=== PATIENT | female | born 1975 | race Hispanic/Latino ===

== ENCOUNTER 2021-02-07 10:26 | Inpatient (IN) | payer MEDICAID, SELFPAY ==
--- NOTE | ~2021-02-07 | XR_ITS ---
EXAMINATION: XR chest 2V DATE: 02/07/2021 12:36 INDICATION: Kidney failure TECHNIQUE: AP and lateral views of the chest are obtained. COMPARISON: None available FINDINGS: There is mild diffuse interstitial pattern. A large bore right internal jugular dialysis ca theter ends with its tip in the proximal right atrium. There are small pleural effusions. No pneumoth orax is identified. The cardiomediastinal silhouette is normal. The visualized bones and soft tissues are unremarkable. IMPRESSION: 1. Mild diffuse interstitial pattern, likely pulmonary edema. Reviewed, dictated and finalized at location A.
[2021-02-07 10:36] VITALS: BP 136/68; PULSE 74; RESP 18; TEMP 37; O2SAT 99
[2021-02-07 11:16] VITALS: BP 141/74; PULSE 75; RESP 19; O2SAT 100
--- NOTE | 2021-02-07 11:42 | ECG_ITS ---
Measurements Intervals [place] Rate: 77 P: 52 WI: 160 QRS: 48 QRSD: 76 T: 78 QT: 389 QTc: 442 Interpretive Statements SINUS RHYTHM CANNOT RULE OUT SEPTAL INFARCT, AGE INDETERMINATE BORDERLINE ST-T WAVE ABNORMALITY- HIGH LATERAL LEADS BASELINE WANDER- I, II, III, AVF ABNORMAL ECG Electronically Signed On 02-07-2021 12:42:32 CDT by Domingo De La Garza D.O.
--- NOTE | 2021-02-07 11:55 | ED.GENADULT ---
HPI - General Adult General Chief complaint: Unspecified Stated complaint: needs urgent dialysis Time Seen by Provider: 02/07/21 11:10 Source: patient and RN notes reviewed Mode of arrival: ambulatory Limitations: language barrier (used video housekeeping aid) History of Present Illness HPI narrative: This is a 45 year old female with history of hypertension, DM, ESRD on dialysis who presents for evaluation of urgent dialysis. She states she been receiving dialysis since October 2020 when she lived in [place]. She reports she moved to the area 1 week ago with her daughter. She received dialysis on Friday at [facility]. She states [facility] was unable to get her set up for dialysis as outpatient because she didn't have papers so she could not get medicaid in [place]. She states she is living in a trailer somewhere in [place] now so she came to ER. She is originally from [place]. She denies chest pain, shortness of breath . edema, nausea, vomiting or weakness. Related Data Allergies Allergy/AdvReac Type Severity Reaction Status Date / Time No Known Allergies Allergy Verified 02/07/21 14:15 Review of Systems Review of Systems: CONSTITUTIONAL: Denies fever, chills, or sweats. EYES: Denies visual changes, redness, or discharge. ENT: Denies rhinorrhea, congestion, sore throat, or otalgia. CARDIOVASCULAR: Denies chest pain, palpitations, or edema. RESPIRATORY: Denies cough or dyspnea. GASTROINTESTINAL: Denies abdominal pain, nausea, vomiting, or diarrhea. GENITOURINARY: Denies dysuria or hematuria. SKIN: Denies rash or itching. MUSCULOSKELETAL: Denies back pain, joint pain, or myalgia. NEUROLOGIC: Denies headache, numbness, or weakness. PSYCHIATRIC: Denies anxiety or depression. All systems reviewed & are unremarkable except as noted in HPI and below PMFSH Past Medical History Medical History (Updated 02/07/21 @ 14:33 by Olivia Anne MD) Arteriovenous fistula for hemodialysis in place, primary Diabetes mellitus ESRD on dialysis Hypertension Hypothyroid Surgical History Surgical History (Updated 02/07/21 @ 12:45 by Olivia Anne MD) H/O section Social History Social History (Updated 02/07/21 @ 12:45 by Olivia Anne MD) Smoking status: Never smoker Exam Narrative: GENERAL: Well-appearing, well-nourished, and in no acute distress. HEAD: Normocephalic, atraumatic EYES: PERRLA and EOMI, conjunctiva clear without discharge THROAT:Mucous membranes moist, Oropharynx normal without erythema, exudate, peritonsillar swelling or fluctuance NECK: Supple, without lymphadenopathy or mass RESPIRATORY: No respiratory distress, Airway patent, Respirations non-labored, Clear to auscultation without rales, rhonchi or wheeze HEART: Regular rate and rhythm. No murmur heard. Normal peripheral pulses. ABDOMEN: Soft, nontender, nondistended, normal active bowel sounds. No masses. No rebound or guarding, No organomegaly. EXTREMITIES: No edema, normal strength with full range of motion. SKIN: Warm, dry, normal color without rash NEURO: Alert and oriented x3. CN 2-12 grossly intact. No focal deficits. PSYCH: Normal mood and affect. Course Consultations Consultation #1: I discussed case with DR. Martínez. He recommends giving patient [address] on oxygen if needed. Patient will likely get dialysis tomorrow. Date: 02/07/21 Time: 14:05 Consultation #2: I discussed case with DR. cruz. She accepts patient to the medical floor. No telemetry needed at this time. Date: 02/07/21 Time: 14:47 Vital Signs Vital signs: Vital Signs Temperature 98.6 F 02/07/21 10:36 Pulse Rate 74 02/07/21 10:36 Respiratory Rate 18 02/07/21 10:36 Blood Pressure 136/68 02/07/21 10:36 Pulse Oximetry 99 02/07/21 10:36 Temperature 98.6 F 02/07/21 10:36 Pulse Rate 82 02/07/21 15:18 Respiratory Rate 19 02/07/21 15:18 Blood Pressure 153/81 H 02/07/21 15:18 Pulse
--- NOTE | 2021-02-07 12:35 | PCCCNOTE ---
Spoke with patient via interpretation video line. Pt states that she used to live in [facility] and recently moved to [place] where she lives with her daughter. Before moving to [place] she spent time with her sister in [place]. Normally she has dialysis on Fri, and Fri but, because she has not established primary care or renal care since her move, she went to [facility] and was hospitalized for dialysis February 01 - Feb 04. [facility] provided a list of hospitals in [place] because, as she is Undocumented, she does not qualify for Medicaid in [place]. She choose [facility] randomly from the list provided so that she could receive dialysis today. She had surgery on her right eye on January 15, 2021 in [place] and would like to have her eyes examined today as well. Explained Emergency Rooms were designated for care in an emergent situation and offered to provide a list of providers with who she could establish care. Spoke with [facility] administrative specialist and will fax over the patient's clinicals today so that the patient can establish herself at a dialysis center closer to where she lives
[2021-02-07 12:40] LABS: Basophils Absolute Auto 0.1 K/mm3 (0.0-0.1); Basophils Percent Auto 1.4 % (0.2-1.2); Immature Granulocyte Absolute 0.02 K/mm3 (0.00-0.031); Immature Granulocyte Percent A 0.2 % (0-0.5); Immature Platelet Fraction Pct 16.3 % (0.9-11.2); Lymphocytes Absolute Auto 2.32 K/mm3 (0.9-3.2); Lymphocytes Percent Auto 28.5 % (18.3-44.2); Mean Corpuscular HGB Conc 32.1 g/dl (32-36); Mean Corpuscular Hemoglobin 28.7 pg (26-34); Mean Corpuscular Volume 89.2 fl (80-100); Mean Platelet Volume 14.1 fl (7.4-10.4); Monocytes Absolute Auto 0.4 K/mm3 (0.1-0.6); Monocytes Percent Auto 5.2 % (2.6-8.5); Neutrophils Absolute Auto 5.3 K/mm3 (1.3-6.7); Neutrophils Percent Auto 64.7 % (45.5-73.1); Platelet Count Result 153 k/mm3 (150-375); Red Blood Count 3.14 M/mm3 (4.2-5.4); Red Cell Distribution Width 14.5 % (11.5-14.5); White Blood Count 8.1 K/mm3 (4.5-10.0)
[2021-02-07 12:49] LABS: INR 0.9; Prothrombin Time 12.2 Seconds (11.1-14.7)
[2021-02-07 12:53] LABS: Alanine Aminotransferase 16 U/L (4-35); Albumin Level 3.8 g/dL (3.5-5.1); Alkaline Phosphatase 136 U/L (38-126); Anion Gap 11 mmol/L (8-16); Aspartate Amino Transferase 31 U/L (14-36); Bilirubin,Total 0.5 mg/dL (0.2-1.3); Blood Urea Nitrogen 62 mg/dL (7-17); Calcium 8.5 mg/dL (8.4-10.2); Carbon Dioxide 21 mmol/L (22-30); Chloride 102 mmol/L (98-107); Estimated CRCL calculation 9 ml/min; Estimated Glomerular Filt Rate 8; Glucose 201 mg/dL (65-110); Magnesium 2.1 mg/dL (1.6-2.3); Phosphorus 3.7 mg/dL (2.5-4.5); Potassium 5.1 mmol/L (3.4-5.0); Sodium 134 mmol/L (137-145)
--- NOTE | 2021-02-07 13:28 | PCCCNOTE ---
Clinicals faxed to [facility]
--- NOTE | 2021-02-07 13:42 | PCCCNOTE ---
Clinicals faxed to [facility]
[2021-02-07] MEDS: SODIUM POLYSTYRENE SULFONONATE 15 GM/60 ML BTL 30 GM PO (14:16)
--- NOTE | 2021-02-07 14:53 | PCCCNOTE ---
Tentatively set dialysis at [facility] in [facility] for , , Fri, Second slot (approximate start time 0 0)
[2021-02-07 15:18] VITALS: BP 153/81; PULSE 82; RESP 19; O2SAT 100
--- NOTE | 2021-02-07 15:41 | PCCCNOTE ---
Spoke with [facility] - pt qualifies, at least temporarily, for Emergency Assistance. Completed IQ form with patient and faxed IQ form to [facility]. Patient had minimal information. Patient does not work and lives with daughter (who works at [employer]) and 16 yr old son.
--- NOTE | 2021-02-07 16:33 | PCCCNOTE ---
Clinicals sent to [facility]
--- NOTE | 2021-02-07 16:54 | PM.CNNEP ---
Assessment and Plan Assessment and plan (1) End-stage renal disease (ESRD): Code(s): N18.6 - End stage renal disease Status: Acute Assessment and Plan: the patient has end-stage renal disease. She has a fistula and a catheter. It does not look like the fistula is mature for use right now. The patient does not have shortness of breath. Her potassium is a little bit elevated. They gave her some Kayexalate in the emergency room. Today there are several patients plus emergencies so we may not be able to get to this dialysis today. The patient does not look uremic and she is not on oxygen and comfortable lying flat so I think it is okay to wait till tomorrow if we can't get to her today. I did talk with the dialysis nurse however in case there is a cancellation of 1 of the dialyses this afternoon. (2) Hypertension: Code(s): I10 - Essential (primary) hypertension Status: Acute Assessment and Plan: Blood pressure is a little bit on the high side. This may be related to fluid. Will see how the blood pressure is after fluid removal. (3) Hyperkalemia: Code(s): E87.5 - Hyperkalemia Status: Acute Assessment and Plan: The patient's potassium is elevated. She received Kayexalate for this. (4) Erythropoietin deficiency anemia: Code(s): D63.1 - Anemia in chronic kidney disease Status: Acute Assessment and Plan: Hemoglobin is low. We will give her Epogen. (5) Metabolic acidosis: Code(s): E87.2 - Acidosis Status: Acute Assessment and Plan: Metabolic acidosis due to under dialysis most likely. We can repeat this tomorrow and see how she does History of Present Illness Reason for Consult Consult date: 02/07/21 Chief Complaint Chief complaint: needs urgent dialysis History of Present Illness Narrative: Clarissa is a very pleasant 45-year-old lady who does not speak Kinyarwanda. I used an meeting/event planner to talk to the lady however the system crash. So some of this is from talking with her, some of this is from the chart. The patient has been on dialysis since October. She started treatments in [facility]. There they placed a catheter and also placed a fistula. The fistula looks like it was placed sometime in the last couple of months but has a very good thrill and bruit in the Cephalic vein in the upper arm. the patient used to live with her sister in [place] and then moved in with her daughter in this area. Unfortunately she did not find accommodations for dialysis before she moved. She does not have a doctor. She went to [facility] last week for dialysis. She had her last treatment on Friday. She was discharged, but I do not know the disposition. Today the patient felt short of breath so she came to the ER here at [facility]. She was evaluated in the emergency room. She is not on oxygen. Her chest x-ray does show some fluid but her lungs are clear and she is not short of breath lying flat. Her potassium is okay. Review of Systems Review of Systems: Unobtainable due to language barrier. ROS unobtainable: Yes other [facility] Past Medical History Medical History (Updated 02/07/21 @ 17:07 by Ayan Martínez MD) Arteriovenous fistula for hemodialysis in place, primary Diabetes mellitus Erythropoietin deficiency anemia ESRD on dialysis Hypertension Hypothyroid Metabolic acidosis Surgical History Surgical History H/O section Social History Social History Smoking status: Never smoker Meds Home Medications and Allergies Allergies Allergy/AdvReac Type Severity Reaction Status Date / Time No Known Allergies Allergy Verified 02/07/21 14:15 Vital Signs Vital Signs - 24 hr 02/07/21 10:36 02/07/21 11:16 02/07/21 15:18 Temperature 37.0 C Pulse Rate 74 75 82 Respiratory Rat
--- NOTE | 2021-02-07 17:50 | ADMGEN ---
This patient, Clarissa Novak, was admitted to 3 Medical Room 346-01. Patient/family oriented to hospital policies and general routines including ID bracelet, bed and alarms, visiting hours, pain management, procedures, bathroom and other care routines, personal items, smoking policy, room service/diet, and visiting hours. Information on how to activate the Rapid Response Team has been discussed. Patient/Family are encouraged to report perceived risks to care and to ask questions if they do not understand what they are told or what they should do.
[2021-02-07 20:00] VITALS: BP 155/85; PULSE 89; RESP 18; TEMP 35.8; O2SAT 100
[2021-02-07 20:44] LABS: Hepatitis B Surface Antigen Negative (Negative)
[2021-02-08] VITALS (18 sets, daily range): BP systolic 117–156; BP diastolic 74–89; PULSE 74–87; RESP 16–20; TEMP 36.1–37.2; O2SAT 99–100
--- NOTE | 2021-02-08 00:17 | PM.IMHP ---
H&P: HPI History of Present Illness Date/Time: 02/08/21 00:17 Chief Complaint: dialysis Narrative: This is a 45-year-old female with past medical history significant for diabetes, end-stage renal disease on hemodialysis patient initially got her treatment in [place] where she was staying with her sister she got a fistula in the left arm and a temporary dialysis catheter of the right subclavian fossa according to patient this was in early October 12 and respectively she has been undergoing dialysis 3 times a week but recently changed area of residence and just moved in this area and has not been able to establish care she had been recently at [facility] for this received hemodialysis and was discharged home. [place] has been [place] the last 3 years she is from [place]. patient states that she has visual loss of her left eye and minimal vision of her right eye due to diabetic retinopathy she also inquires if it is possible to get care for her diabetic retinopathy in the area. at this time she denies any nausea vomiting abdominal pain diarrhea shortness of breath cough sputum production shaking chills or rigors no edema. Preliminary workup was significant for elevated creatinine. now she has relocated to this area iis currently living with her daughter. Review of Systems Review of Systems: shortness of breath and need for dialysis Constitutional: Constitutional: Denies chills, Denies fatigue, Denies fever(s), Denies malaise and Denies weakness Eyes: Eyes: Reports loss of vision ( left eye blindness right eye diminished vision acuity) ENT: Denies dysphagia, Denies nasal congestion, Denies nasal discharge, Denies nasal obstruction and Denies odynophagia Cardiovascular: Cardiovascular: Denies chest pain, Denies leg edema, Denies radiating jaw, neck or arm pain, Denies palpitations and Reports dyspnea Respiratory: Respiratory: Denies cough Gastrointestinal: Gastrointestinal: Denies diarrhea, Denies nausea and Denies vomiting Genitourinary: Genitourinary: Reports no additional female genitourinary complaints Musculoskeletal: Musculoskeletal: Reports no additional musculoskeletal complaints Integumentary/Breasts: Skin/Breast: Reports system reviewed and no additional complaints, except as docu Neurologic: Reports system reviewed and no additional complaints, except as documented Psychiatric: Psychiatric: Reports no additional psychiatric complaints Endocrine: Endocrine: Reports no additional endocrine complaints Hematologic/Lymphatic: Hematologic/Lymphatic: Reports no additional hematologic/lymphatic complaints Allergic/Immunologic: Allergic/Immunologic: Reports no additional allergic/immunologic complaints [facility] Past Medical History Medical History (Updated 02/08/21 @ 00:46 by Shane Cardona MD) Arteriovenous fistula for hemodialysis in place, primary Diabetes mellitus Erythropoietin deficiency anemia ESRD on dialysis Hypertension Hypothyroid Metabolic acidosis Surgical History Surgical History H/O section Family History Family History (Updated 02/07/21 @ 18:32 by Amanda Greene RN) Mother Diabetes mellitus Father Emphysema lung Smoker Social History Social History Smoking status: Never smoker Alcohol intake: never Substance use: never Substance use type: does not use Spiritual care concerns: No Meds Home Medications and Allergies Home Medications Medication Instructions Recorded Confirmed Type Vitamin D3 400 units PO DAILY 02/07/21 02/07/21 History amlodipine 10 mg PO DAILY 02/07/21 02/07/21 History aspirin 81 mg PO DAILY 02/07/21 02/07/21 History atorvastatin 40 mg PO HS 02/07/21 02/07/21 History atropine 1 drp RIGHT EYE DAILY 02/07/21 02/07/21 History brimonidine-timolol [Combigan] 1 drp RIGHT EYE DAILY 02/07/21 02/07/21 History carvedilol 12.5 mg PO D
[2021-02-08] MEDS: LEVOTHYROXINE SODIUM 88 MCG TABLET PO (05:32)
[2021-02-08 06:10] LABS: Basophils Absolute Auto 0.1 K/mm3 (0.0-0.1); Basophils Percent Auto 1.3 % (0.2-1.2); Eosinophils Absolute Auto 0.5 K/mm3 (0-0.3); Eosinophils Percent Auto 5.4 % (0-4.4); Hematocrit 30.1 % (37.0-47.0); Hemoglobin 9.7 g/dL (12.0-15.0); Immature Granulocyte Absolute 0.02 K/mm3 (0.00-0.031); Immature Granulocyte Percent A 0.2 % (0-0.5); Immature Platelet Fraction Pct 14.1 % (0.9-11.2); Lymphocytes Absolute Auto 2.61 K/mm3 (0.9-3.2); Lymphocytes Percent Auto 31.5 % (18.3-44.2); Mean Corpuscular HGB Conc 32.2 g/dl (32-36); Mean Corpuscular Volume 89.9 fl (80-100); Mean Platelet Volume 13.5 fl (7.4-10.4); Monocytes Absolute Auto 0.3 K/mm3 (0.1-0.6); Monocytes Percent Auto 4.1 % (2.6-8.5); Neutrophils Absolute Auto 4.8 K/mm3 (1.3-6.7); Neutrophils Percent Auto 57.5 % (45.5-73.1); Platelet Count Result 160 k/mm3 (150-375); Red Blood Count 3.35 M/mm3 (4.2-5.4); Red Cell Distribution Width 14.3 % (11.5-14.5); White Blood Count 8.3 K/mm3 (4.5-10.0)
[2021-02-08 06:28] LABS: Albumin Level 3.4 g/dL (3.5-5.1); Anion Gap 10 mmol/L (8-16); Blood Urea Nitrogen 55 mg/dL (7-17); Calcium 9.1 mg/dL (8.4-10.2); Carbon Dioxide 18 mmol/L (22-30); Chloride 110 mmol/L (98-107); Estimated CRCL calculation 8 ml/min; Estimated Glomerular Filt Rate 7; Glucose 105 mg/dL (65-110); Phosphorus 4.6 mg/dL (2.5-4.5); Potassium 4.4 mmol/L (3.4-5.0); Sodium 138 mmol/L (137-145)
[2021-02-08] MEDS: FUROSEMIDE 40 MG TABLET PO (08:37)
[2021-02-08] MEDS: CHOLECALCIFEROL 400 UNITS TABLET (VIT D) PO (08:37)
[2021-02-08] MEDS: amLODIPine BESYLATE 5 MG TABLET 10 MG PO (08:37)
[2021-02-08] MEDS: LORATADINE 10 MG TABLET PO (08:37)
[2021-02-08] MEDS: ASPIRIN 81 MG ENTERIC TABLET PO (08:37)
[2021-02-08] MEDS: carvediloL 12.5 MG TABLET PO ×2 (08:37→17:48)
[2021-02-08 08:38] LABS: Glucose Point of Care 108 mg/dl (65-105)
[2021-02-08] MEDS: FERROUS SULFATE 324 MG TABLET PO (08:38)
[2021-02-08] MEDS: BRIMONIDINE TARTRATE 0.2% OP SOLN 5 ML BTL 1 DROP RIGHT EYE (08:39)
[2021-02-08] MEDS: prednisoLONE ACETATE 1% OPHTH 5 ML 1 DROP RIGHT EYE (08:39)
[2021-02-08] MEDS: ATROPINE SULFATE 1% OPHTH SOLN 5 ML BOTTLE 1 DROP RIGHT EYE (08:39)
[2021-02-08] MEDS: TIMOLOL MALEATE 0.5% OP SOLN 5 ML BOTTLE 1 DROP RIGHT EYE (08:55)
[2021-02-08] MEDS: INSULIN ASPART (*BKC) 100 UNITS/ML SUB-Q ×3 (09:06→17:50)
--- NOTE | 2021-02-08 09:15 | PC.NURSE ---
Report called to director public service.
--- NOTE | 2021-02-08 09:21 | PC.NURSE ---
To Dialysis via bed.
[2021-02-08] MEDS: EPOETIN ALFA-EPBX 10,000 UNITS/ML VIAL 10000 UNITS IV PUSH (10:00)
[2021-02-08 12:06] LABS: Hepatitis B Core IgM Result Negative (Negative)
--- NOTE | 2021-02-08 13:00 | PC.NURSE ---
Returned from dialysis via bed.
[2021-02-08 13:09] LABS: Glucose Point of Care 137 mg/dl (65-105)
--- NOTE | 2021-02-08 14:31 | PM.PNNEP ---
Progress Note: A&P Assessment and Plan (1) End-stage renal disease (ESRD): Code(s): N18.6 - End stage renal disease Status: Acute Assessment and Plan: the patient has end-stage renal disease. She has a fistula and a catheter. It does not look like the fistula is mature for use right now. The patient had dialysis earlier today. She will need placement in an outpatient dialysis unit. (2) Hypertension: Code(s): I10 - Essential (primary) hypertension Status: Acute Assessment and Plan: Blood pressure is doing better. (3) Hyperkalemia: Code(s): E87.5 - Hyperkalemia Status: Acute Assessment and Plan: The patient's potassium is Better. (4) Erythropoietin deficiency anemia: Code(s): D63.1 - Anemia in chronic kidney disease Status: Acute Assessment and Plan: Hemoglobin is low. Getting Epogen. (5) Metabolic acidosis: Code(s): E87.2 - Acidosis Status: Acute Assessment and Plan: Metabolic acidosis due to under dialysis most likely. We can repeat this tomorrow and see how she does Subjective Date/time seen: 02/08/21 14:31 Interval history: Clarissa is feeling better today. She is smiling. Photo Booth Operator is unavailable. Daughter is at work and cannot help. The patient received dialysis today. Hemodynamically she did very well. Review of Systems Cardiovascular: Cardiovascular: Reports no additional cardiovascular complaints Respiratory: Respiratory: Reports no additional respiratory complaints Gastrointestinal: Gastrointestinal: Reports no additional gastrointestinal complaints Genitourinary: Genitourinary: Reports no additional female genitourinary complaints Exam Narrative: WDWN in NAD skin no rash head ncat lungs clear cor reg no rub abd BS+ nontender and soft ext no edema. Objective Data Vital Signs Vital Signs: Vital Signs - 24 hr 02/07/21 15:18 02/07/21 20:00 02/08/21 05:54 Temperature 35.8 C L 36.1 C L Pulse Rate 82 89 87 Respiratory Rate 19 18 18 Blood Pressure 153/81 H 155/85 H 156/76 H Pulse Oximetry 100 100 100 02/08/21 08:37 02/08/21 09:00 02/08/21 09:30 Temperature 36.7 C Pulse Rate 84 84 78 Respiratory Rate 18 20 Blood Pressure 150/85 H Pulse Oximetry 100 02/08/21 09:45 02/08/21 10:00 02/08/21 10:15 Temperature Pulse Rate 77 80 78 Respiratory Rate Blood Pressure 150/82 H 154/89 H 153/84 H Pulse Oximetry 02/08/21 11:00 02/08/21 11:30 02/08/21 12:00 Temperature Pulse Rate 78 79 80 Respiratory Rate Blood Pressure 155/81 H 141/78 H 141/83 H Pulse Oximetry 02/08/21 12:15 02/08/21 12:30 02/08/21 12:45 Temperature Pulse Rate 81 84 82 Respiratory Rate Blood Pressure 137/80 117/74 130/82 Pulse Oximetry 02/08/21 12:50 Temperature 36.8 C Pulse Rate 78 Respiratory Rate 20 Blood Pressure 147/79 H Pulse Oximetry Intake/Output Intake/Output: Intake & Output 02/05/21 02/06/21 02/07/21 02/08/21 23:59 23:59 23:59 23:59 Intake Total 240 Output Total 3000 Balance -5540 Meds/Results Medications: Active Medications Generic Name Dose Route Start Last Admin Trade Name Freq PRN Reason Stop Dose Admin Amlodipine Besylate 10 mg 02/08/21 09:00 02/08/21 08:37 Amlodipine Besylate 5 Mg Tablet PO 03/10/21 09:01 10 mg DAILY AMY Administration Aspirin 81 mg 02/08/21 09:00 02/08/21 08:37 Aspirin 81 Mg Enteric Tablet PO 81 mg QAM AMY Administration Atorvastatin Calcium 40 mg 02/08/21 21:00 Atorvastatin 40 Mg Tablet PO AMY Atropine Sulfate 1 drop 02/08/21 09:00 02/08/21 08:39 Atropine Sulfate 1% Ophth Soln 5 Ml Bottle RIGHT EYE 03/10/21 09:01 1 drop DAILY AMY Administration Brimonidine Tartrate 1 drop 02/08/21 09:00 02/08/21 08:39 Brimonidine Tartrate 0.2% Op Soln 5 Ml Btl RIGHT EYE 03/10/21 09:01 1 drop DAILY AMY Administration Carve
--- NOTE | 2021-02-08 15:49 | PM.IMPN ---
Progress Note: A&P Assessment and Plan (1) End-stage renal disease (ESRD): Code(s): N18.6 - End stage renal disease Status: Acute Assessment and Plan: patient dialyzes 3 times a week, recently moved to the area. Last Dialysis was Friday at [facility]. Dr. Martínez evaluated the patient and she had dialysis this morning Feeling well at this time. Working on getting her an outpatient dialysis chair. Continued monitoring. (2) Hyperkalemia: Code(s): E87.5 - Hyperkalemia Status: Acute Assessment and Plan: Improved after dialysis. She did receive Kayexalate the emergency room on arrival. (3) Hypertension: Code(s): I10 - Essential (primary) hypertension Status: Acute Assessment and Plan: Blood pressure this morning was slightly elevated 156/76, most likely due to fluid overload and needing dialysis. resume home meds (4) Diabetes mellitus: Code(s): E11.9 - Type 2 diabetes mellitus without complications Status: Inactive Assessment and Plan: patient is on glipizide glipizide has been held due to patient's end-stage renal disease will do insulin sliding scale as needed. glucose check a.c. HS. Hypoglycemic protocol in place. (5) Arteriovenous fistula for hemodialysis in place, primary: Code(s): Z99.2 - Dependence on renal dialysis Status: Inactive Assessment and Plan: continue to monitor immature Time Spent With Patient Time with patient: 25 - 35 minutes Subjective Date/time seen: 02/08/21 15:49 Interval history: date of service 02/08/2021: the patient reports feeling well today After having dialysis. she reports improvement of her breathing, weakness, fatigue. She denies any fevers, chills, nausea, vomiting, abdominal pain, leg swelling, calf pain, chest pain, cough or any other symptoms at this time. receiving lead was used via [employer] system Review of Systems Review of Systems: All systems reviewed & are unremarkable except as noted in HPI and below Exam Narrative: General: 45-year-old woman sitting up in bed, on her phone. Appears comfortable. In no acute distress. Skin: No jaundice or cyanosis. Good skin turgor. Neck: Full range of motion. Supple. Respiratory: Lungs are clear to auscultation bilaterally. No wheezing, rales or rhonchi. No bony chest wall tenderness. Cardiovascular: The heart has a regular rate and rhythm without murmur. Lower extremities: No lower extremity edema. Distal pulses are easily palpated. No calf tenderness to palpation. Gastrointestinal: The abdomen is soft, nontender and nondistended with active bowel sounds. Psychiatric: Lucid and oriented. Memory intact. Neurologic: No focal deficits. Speech is clear. No facial drooping. Objective Data Vital Signs Vital Signs: Vital Signs - 24 hr 02/07/21 20:00 02/08/21 05:54 02/08/21 08:37 Temperature 96.5 F L 96.9 F L Pulse Rate 89 87 84 Respiratory Rate 18 18 Blood Pressure 155/85 H 156/76 H Pulse Oximetry 100 100 02/08/21 09:00 02/08/21 09:30 02/08/21 09:45 Temperature 98.0 F Pulse Rate 84 78 77 Respiratory Rate 18 20 Blood Pressure 150/85 H 150/82 H Pulse Oximetry 100 02/08/21 10:00 02/08/21 10:15 02/08/21 11:00 Temperature Pulse Rate 80 78 78 Respiratory Rate Blood Pressure 154/89 H 153/84 H 155/81 H Pulse Oximetry 02/08/21 11:30 02/08/21 12:00 02/08/21 12:15 Temperature Pulse Rate 79 80 81 Respiratory Rate Blood Pressure 141/78 H 141/83 H 137/80 Pulse Oximetry 02/08/21 12:30 02/08/21 12:45 02/08/21 12:50 Temperature 98.2 F Pulse Rate 84 82 78 Respiratory Rate 20 Blood Pressure 117/74 130/82 147/79 H Pulse Oximetry
[2021-02-08 17:14] LABS: Glucose Point of Care 117 mg/dl (65-105)
[2021-02-08] MEDS: ATORVASTATIN 40 MG TABLET PO (20:21)
[2021-02-08 20:52] LABS: Glucose Point of Care 123 mg/dl (65-105)
[2021-02-09] MEDS: LEVOTHYROXINE SODIUM 88 MCG TABLET PO (05:48)
[2021-02-09 05:54] VITALS: BP 140/73; PULSE 77; RESP 16; TEMP 36.1; O2SAT 100
[2021-02-09 06:11] LABS: Albumin Level 3.4 g/dL (3.5-5.1); Anion Gap 9 mmol/L (8-16); Blood Urea Nitrogen 29 mg/dL (7-17); Calcium 8.8 mg/dL (8.4-10.2); Carbon Dioxide 25 mmol/L (22-30); Chloride 97 mmol/L (98-107); Estimated CRCL calculation 13 ml/min; Estimated Glomerular Filt Rate 12; Glucose 116 mg/dL (65-110); Phosphorus 4.1 mg/dL (2.5-4.5); Potassium 3.6 mmol/L (3.4-5.0); Sodium 131 mmol/L (137-145)
[2021-02-09 09:07] VITALS: PULSE 77
[2021-02-09] MEDS: carvediloL 12.5 MG TABLET PO ×2 (09:07→17:24)
[2021-02-09] MEDS: amLODIPine BESYLATE 5 MG TABLET 10 MG PO (09:07)
[2021-02-09] MEDS: LORATADINE 10 MG TABLET PO (09:07)
[2021-02-09] MEDS: ASPIRIN 81 MG ENTERIC TABLET PO (09:07)
[2021-02-09] MEDS: FUROSEMIDE 40 MG TABLET PO (09:07)
[2021-02-09] MEDS: FERROUS SULFATE 324 MG TABLET PO (09:07)
[2021-02-09] MEDS: ATROPINE SULFATE 1% OPHTH SOLN 5 ML BOTTLE 1 DROP RIGHT EYE (09:07)
[2021-02-09] MEDS: CHOLECALCIFEROL 400 UNITS TABLET (VIT D) PO (09:07)
[2021-02-09] MEDS: BRIMONIDINE TARTRATE 0.2% OP SOLN 5 ML BTL 1 DROP RIGHT EYE (09:07)
[2021-02-09] MEDS: TIMOLOL MALEATE 0.5% OP SOLN 5 ML BOTTLE 1 DROP RIGHT EYE (09:08)
[2021-02-09] MEDS: prednisoLONE ACETATE 1% OPHTH 5 ML 1 DROP RIGHT EYE (09:08)
[2021-02-09] MEDS: INSULIN ASPART (*BKC) 100 UNITS/ML SUB-Q ×3 (09:15→17:24)
[2021-02-09 09:16] LABS: Glucose Point of Care 143 mg/dl (65-105)
--- NOTE | 2021-02-09 10:12 | PM.PNNEP ---
Progress Note: A&P Assessment and Plan (1) End-stage renal disease (ESRD): Code(s): N18.6 - End stage renal disease Status: Acute Assessment and Plan: the patient has end-stage renal disease. She has a fistula and a catheter. It does not look like the fistula is mature for use right now. will do another dialysis tomorrow. house visitor trying to get her an outpatient facility. (2) Hypertension: Code(s): I10 - Essential (primary) hypertension Status: Acute Assessment and Plan: Blood pressure is doing better. (3) Hyperkalemia: Code(s): E87.5 - Hyperkalemia Status: Acute Assessment and Plan: The patient's potassium is Better. (4) Erythropoietin deficiency anemia: Code(s): D63.1 - Anemia in chronic kidney disease Status: Acute Assessment and Plan: Hemoglobin is low. Getting Epogen. (5) Metabolic acidosis: Code(s): E87.2 - Acidosis Status: Acute Assessment and Plan: resolved Subjective Date/time seen: 02/09/21 10:12 Interval history: Clarissa is feeling better today. She is smiling. Ipad mud jack operator available. Patient has no chest pain or shortness of breath. She is feeling okay. Exam Narrative: WDWN in NAD skin no rash head ncat lungs clear bilaterally cor reg no rub o gallop abd BS+ nontender and soft ext no edema. Objective Data Vital Signs Vital Signs: Vital Signs - 24 hr 02/08/21 10:15 02/08/21 11:00 02/08/21 11:30 Temperature Pulse Rate 78 78 79 Respiratory Rate Blood Pressure 153/84 H 155/81 H 141/78 H Pulse Oximetry 02/08/21 12:00 02/08/21 12:15 02/08/21 12:30 Temperature Pulse Rate 80 81 84 Respiratory Rate Blood Pressure 141/83 H 137/80 117/74 Pulse Oximetry 02/08/21 12:45 02/08/21 12:50 02/08/21 14:00 Temperature 36.8 C 37.2 C Pulse Rate 82 78 84 Respiratory Rate 20 18 Blood Pressure 130/82 147/79 H 151/74 H Pulse Oximetry 100 02/08/21 17:48 02/08/21 20:16 02/08/21 23:49 Temperature 36.2 C L Pulse Rate 84 74 Respiratory Rate 16 Blood Pressure 151/76 H Pulse Oximetry 100 99 02/09/21 05:54 02/09/21 09:07 Temperature 36.1 C L Pulse Rate 77 77 Respiratory Rate 16 Blood Pressure 140/73 Pulse Oximetry 100 Intake/Output Intake/Output: Intake & Output 02/06/21 02/07/21 02/08/21 02/09/21 23:59 23:59 23:59 23:59 Intake Total 840 560 Output Total 3000 Balance -2160 560 Meds/Results Medications: Active Medications Generic Name Dose Route Start Last Admin Trade Name Freq PRN Reason Stop Dose Admin Amlodipine Besylate 10 mg 02/08/21 09:00 02/09/21 09:07 Amlodipine Besylate 5 Mg Tablet PO 03/10/21 09:01 10 mg DAILY AMY Administration Aspirin 81 mg 02/08/21 09:00 02/09/21 09:07 Aspirin 81 Mg Enteric Tablet PO 81 mg QAM AMY Administration Atorvastatin Calcium 40 mg 02/08/21 21:00 02/08/21 20:21 Atorvastatin 40 Mg Tablet PO 40 mg HS AMY Administration Atropine Sulfate 1 drop 02/08/21 09:00 02/09/21 09:07 Atropine Sulfate 1% Ophth Soln 5 Ml Bottle RIGHT EYE 03/10/21 09:01 1 drop DAILY AMY Administration Brimonidine Tartrate 1 drop 02/08/21 09:00 02/09/21 09:07 Brimonidine Tartrate 0.2% Op Soln 5 Ml Btl RIGHT EYE 03/10/21 09:01 1 drop DAILY AMY Administration Carvedilol 12.5 mg 02/08/21 17:00 02/09/21 09:07 Carvedilol 12.5 Mg Tablet PO 12.5 mg BID AMY Administration Epoetin Luis Fernando-epbx 10,000 units 02/10/21 10:00 Epoetin Luis Fernando-Epbx 10,000 Units/Ml Vial IV PUSH TUTHSA [facility] Ferrous Sulfate 324 mg 02/08/21 08:00 02/09/21 09:07 Ferrous Sulfate 324 Mg Tablet PO 324 mg DAILY@0800 AMY Administration Furosemide 40 mg 02/08/21 09:00 02/09/21 09:07 Furosemide 40 Mg Tablet PO 40 mg DAILY AMY Administration Heparin Sodium (Porcine) 500 units 02/09/21 09:45 Heparin Sodium 1,000 Units/Ml Vial IV PUSH
--- NOTE | 2021-02-09 11:47 | PM.IMPN ---
Progress Note: A&P Assessment and Plan (1) End-stage renal disease (ESRD): Code(s): N18.6 - End stage renal disease Status: Acute Assessment and Plan: patient dialyzes 3 times a week, recently moved to the area. Last Dialysis was Friday at [facility], she received dialysis 02/08/21. Dr. Martínez evaluated the patient and working on getting her an outpatient dialysis chair. Pending Hepatitis B Core Surface Antibody before someone will accept her at outpatient dialysis. Continued monitoring. (2) Hyperkalemia: Code(s): E87.5 - Hyperkalemia Status: Acute Assessment and Plan: Improved after dialysis. She did receive Kayexalate the emergency room on arrival. (3) Hypertension: Code(s): I10 - Essential (primary) hypertension Status: Acute Assessment and Plan: Blood pressure this morning was slightly elevated 140/73. Stable. Continue home meds (4) Diabetes mellitus: Code(s): E11.9 - Type 2 diabetes mellitus without complications Status: Inactive Assessment and Plan: patient is on glipizide glipizide has been held due to patient's end-stage renal disease will do insulin sliding scale as needed. glucose check a.c. HS. Hypoglycemic protocol in place. (5) Arteriovenous fistula for hemodialysis in place, primary: Code(s): Z99.2 - Dependence on renal dialysis Status: Inactive Assessment and Plan: continue to monitor immature Time Spent With Patient Time with patient: 25 - 35 minutes Subjective Date/time seen: 02/09/21 11:47 Interval history: Date of service 02/09/2021: The patient reports feeling well today without any issues at this time. Denies any SOB, fevers, chills, nausea, vomiting, abdominal pain, leg swelling, calf pain, chest pain, cough or any other symptoms at this time. grounds restoration specialist was used via [employer] system. Review of Systems Review of Systems: All systems reviewed & are unremarkable except as noted in HPI and below Exam Narrative: General: 45-year-old woman laying flat in bed resting. Appears comfortable. In no acute distress. Skin: No jaundice or cyanosis. Good skin turgor. Neck: Full range of motion. Supple. Respiratory: Lungs are clear to auscultation bilaterally. No wheezing, rales or rhonchi. No bony chest wall tenderness. Cardiovascular: The heart has a regular rate and rhythm without murmur. Lower extremities: No lower extremity edema. Distal pulses are easily palpated. No calf tenderness to palpation. Gastrointestinal: The abdomen is soft, nontender and nondistended with active bowel sounds. Psychiatric: Lucid and oriented. Memory intact. Neurologic: No focal deficits. Speech is clear. No facial drooping. Objective Data Vital Signs Vital Signs: Vital Signs - 24 hr 02/08/21 12:00 02/08/21 12:15 02/08/21 12:30 Temperature Pulse Rate 80 81 84 Respiratory Rate Blood Pressure 141/83 H 137/80 117/74 Pulse Oximetry 02/08/21 12:45 02/08/21 12:50 02/08/21 14:00 Temperature 98.2 F 98.9 F Pulse Rate 82 78 84 Respiratory Rate 20 18 Blood Pressure 130/82 147/79 H 151/74 H Pulse Oximetry 100 02/08/21 17:48 02/08/21 20:16 02/08/21 23:49 Temperature 97.1 F L Pulse Rate 84 74 Respiratory Rate 16 Blood Pressure 151/76 H Pulse Oximetry 100 99 02/09/21 05:54 02/09/21 09:07 Temperature 96.9 F L Pulse Rate 77 77 Respiratory Rate 16 Blood Pressure 140/73 Pulse Oximetry 100 Intake/Output Intake/Output: Intake & Output 02/06/21 02/07/21 02/08/21 02/09/21 23:59 23:59 23:59 23:59 Intake Total 840 560 Output Total 3000 Balance -2160 560 Meds/Results Medications: Active Medications Generic Name
[2021-02-09 11:50] LABS: Hepatitis B Surface Anti Res Negative; Hepatitis C Virus Antibody Negative (Negative)
[2021-02-09 12:50] LABS: Glucose Point of Care 172 mg/dl (65-105)
[2021-02-09 14:11] VITALS: BP 129/73; PULSE 77; RESP 16; TEMP 36; O2SAT 100
[2021-02-09 17:18] LABS: Glucose Point of Care 127 mg/dl (65-105)
[2021-02-09 17:24] VITALS: PULSE 77
[2021-02-09] MEDS: ENOXAPARIN 30 MG/0.3 ML SYRINGE SUB-Q (17:24)
[2021-02-09] MEDS: EPOETIN ALFA-EPBX 10,000 UNITS/ML VIAL 10000 UNITS SUB-Q (18:13)
[2021-02-09] MEDS: ACETAMINOPHEN 325 MG TABLET 650 MG PO (18:13)
[2021-02-09] MEDS: ATORVASTATIN 40 MG TABLET PO (20:19)
[2021-02-09 20:35] LABS: Glucose Point of Care 143 mg/dl (65-105)
[2021-02-09 22:00] VITALS: BP 139/66; PULSE 76; RESP 21; TEMP 35.9; O2SAT 100
[2021-02-10] VITALS (12 sets, daily range): BP systolic 102–148; BP diastolic 65–81; PULSE 73–84; RESP 16–21; TEMP 36–37; O2SAT 100
[2021-02-10] MEDS: LEVOTHYROXINE SODIUM 88 MCG TABLET PO (05:35)
[2021-02-10 06:40] LABS: Albumin Level 3.2 g/dL (3.5-5.1); Anion Gap 12 mmol/L (8-16); Blood Urea Nitrogen 48 mg/dL (7-17); Calcium 8.9 mg/dL (8.4-10.2); Carbon Dioxide 22 mmol/L (22-30); Chloride 97 mmol/L (98-107); Estimated CRCL calculation 10 ml/min; Estimated Glomerular Filt Rate 8; Glucose 124 mg/dL (65-110); Phosphorus 5.1 mg/dL (2.5-4.5); Potassium 3.6 mmol/L (3.4-5.0); Sodium 131 mmol/L (137-145)
[2021-02-10] MEDS: BRIMONIDINE TARTRATE 0.2% OP SOLN 5 ML BTL 1 DROP RIGHT EYE (08:34)
[2021-02-10] MEDS: ENOXAPARIN 30 MG/0.3 ML SYRINGE SUB-Q (08:34)
[2021-02-10] MEDS: ATROPINE SULFATE 1% OPHTH SOLN 5 ML BOTTLE 1 DROP RIGHT EYE (08:34)
[2021-02-10] MEDS: FUROSEMIDE 40 MG TABLET PO (08:34)
[2021-02-10] MEDS: prednisoLONE ACETATE 1% OPHTH 5 ML 1 DROP RIGHT EYE (08:34)
[2021-02-10] MEDS: TIMOLOL MALEATE 0.5% OP SOLN 5 ML BOTTLE 1 DROP RIGHT EYE (08:34)
[2021-02-10] MEDS: amLODIPine BESYLATE 5 MG TABLET 10 MG PO (08:34)
[2021-02-10] MEDS: carvediloL 12.5 MG TABLET PO ×2 (08:34→17:14)
[2021-02-10] MEDS: FERROUS SULFATE 324 MG TABLET PO (08:34)
[2021-02-10] MEDS: CHOLECALCIFEROL 400 UNITS TABLET (VIT D) PO (08:34)
[2021-02-10] MEDS: LORATADINE 10 MG TABLET PO (08:34)
[2021-02-10] MEDS: ASPIRIN 81 MG ENTERIC TABLET PO (08:34)
[2021-02-10] MEDS: INSULIN ASPART (*BKC) 100 UNITS/ML SUB-Q ×3 (08:35→17:14)
[2021-02-10 08:46] LABS: Glucose Point of Care 128 mg/dl (65-105)
--- NOTE | 2021-02-10 10:00 | PC.NURSE ---
Patient to dialysis via bed.
--- NOTE | 2021-02-10 11:26 | PM.PNNEP ---
Progress Note: A&P Assessment and Plan (1) End-stage renal disease (ESRD): Code(s): N18.6 - End stage renal disease Status: Acute Assessment and Plan: the patient has end-stage renal disease. She has a fistula and a catheter. It does not look like the fistula is mature for use right now. Finish dialysis today and then put on Friday schedule head baker trying to get her an outpatient facility. (2) Hypertension: Code(s): I10 - Essential (primary) hypertension Status: Acute Assessment and Plan: Blood pressure is doing better. (3) Hyperkalemia: Code(s): E87.5 - Hyperkalemia Status: Acute Assessment and Plan: The patient's potassium is Better. (4) Erythropoietin deficiency anemia: Code(s): D63.1 - Anemia in chronic kidney disease Status: Acute Assessment and Plan: Hemoglobin is low. Getting Epogen. (5) Metabolic acidosis: Code(s): E87.2 - Acidosis Status: Acute Assessment and Plan: resolved Subjective Date/time seen: 02/10/21 11:26 Interval history: Clarissa is feeling better today. She is smiling. Ipad weatherization director unavailable. On dialysis and tolerating well. Blood pressure seems to be doing very well. She was seen at 11:05 a.m. Exam Narrative: WDWN in NAD skin no rash head ncat lungs clear bilaterally cor reg no rub o gallop abd BS+ nontender and soft ext no edema. Objective Data Vital Signs Vital Signs: Vital Signs - 24 hr 02/09/21 14:11 02/09/21 17:24 02/09/21 22:00 Temperature 36.0 C L 35.9 C L Pulse Rate 77 77 76 Respiratory Rate 16 21 H Blood Pressure 129/73 139/66 Pulse Oximetry 100 100 02/10/21 06:00 02/10/21 08:34 Temperature 36.6 C Pulse Rate 74 74 Respiratory Rate 21 H Blood Pressure 134/71 Pulse Oximetry 100 Intake/Output Intake/Output: Intake & Output 02/07/21 02/08/21 02/09/21 02/10/21 23:59 23:59 23:59 23:59 Intake Total 840 1280 590 Output Total 3000 500 Balance -2160 1280 90 Meds/Results Medications: Active Medications Generic Name Dose Route Start Last Admin Trade Name Freq PRN Reason Stop Dose Admin Acetaminophen 650 mg 02/09/21 17:29 02/09/21 18:13 Acetaminophen 325 Mg Tablet PO 650 mg Q6H PRN Administration Mild Pain (1-3) or Fever Amlodipine Besylate 10 mg 02/08/21 09:00 02/10/21 08:34 Amlodipine Besylate 5 Mg Tablet PO 03/10/21 09:01 10 mg DAILY AMY Administration Aspirin 81 mg 02/08/21 09:00 02/10/21 08:34 Aspirin 81 Mg Enteric Tablet PO 81 mg QAM [facility] Administration Atorvastatin Calcium 40 mg 02/08/21 21:00 02/09/21 20:19 Atorvastatin 40 Mg Tablet PO 40 mg HS [facility] Administration Atropine Sulfate 1 drop 02/08/21 09:00 02/10/21 08:34 Atropine Sulfate 1% Ophth Soln 5 Ml Bottle RIGHT EYE 03/10/21 09:01 1 drop DAILY [facility] Administration Brimonidine Tartrate 1 drop 02/08/21 09:00 02/10/21 08:34 Brimonidine Tartrate 0.2% Op Soln 5 Ml Btl RIGHT EYE 03/10/21 09:01 1 drop DAILY [facility] Administration Carvedilol 12.5 mg 02/08/21 17:00 02/10/21 08:34 Carvedilol 12.5 Mg Tablet PO 12.5 mg BID [facility] Administration Enoxaparin Sodium 30 mg 02/09/21 12:05 02/10/21 08:34 Enoxaparin 30 Mg/0.3 Ml Syringe SUB-Q 30 mg DAILY [facility] Administration Epoetin Luis Fernando-epbx 10,000 units 02/10/21 10:00 Epoetin Luis Fernando-Epbx 10,000 Units/Ml Vial IV PUSH TUTHSA [facility] Ferrous Sulfate 324 mg 02/08/21 08:00 02/10/21 08:34 Ferrous Sulfate 324 Mg Tablet PO 324 mg DAILY@0800 [facility] Administration Furosemide 40 mg 02/08/21 09:00 02/10/21 08:34 Furosemide 40 Mg Tablet PO 40 mg DAILY [facility] Administration Insulin Aspart 2 units 02/08/21 08:00 02/10/21 08:35 Insulin Aspart (*Bkc) 100 Units/Ml 0.05 units/kg (2 units) 2 units SUB-Q Administration TIDWM [facility] Levothyroxine Sodium 88 mcg 02/08/21 06:30 02/10/21 05:35 L
--- NOTE | 2021-02-10 13:34 | PM.IMPN ---
Progress Note: A&P Assessment and Plan (1) End-stage renal disease (ESRD): Code(s): N18.6 - End stage renal disease Status: Acute Assessment and Plan: patient dialyzes 3 times a week, recently moved to the area. Last Dialysis was Friday at [facility], she received dialysis 02/08/21. Dr. Martínez evaluated the patient and working on getting her an outpatient dialysis chair. Pending Hepatitis B Core Surface Antibody before someone will accept her at outpatient dialysis. Continued monitoring. (2) Hyperkalemia: Code(s): E87.5 - Hyperkalemia Status: Acute Assessment and Plan: Improved after dialysis. She did receive Kayexalate the emergency room on arrival. (3) Hypertension: Code(s): I10 - Essential (primary) hypertension Status: Acute Assessment and Plan: Blood pressure this morning was slightly elevated 134/71. Stable. Continue home meds (4) Diabetes mellitus: Code(s): E11.9 - Type 2 diabetes mellitus without complications Status: Inactive Assessment and Plan: patient is on glipizide glipizide has been held due to patient's end-stage renal disease will do insulin sliding scale as needed. glucose check a.c. HS. Hypoglycemic protocol in place. (5) Arteriovenous fistula for hemodialysis in place, primary: Code(s): Z99.2 - Dependence on renal dialysis Status: Inactive Assessment and Plan: continue to monitor immature Time Spent With Patient Time with patient: 25 - 35 minutes Subjective Date/time seen: 02/10/21 13:34 Interval history: Date of service 02/10/2021: The patient reports feeling well today without any issues at this time. Denies any SOB, fevers, chills, nausea, vomiting, abdominal pain, leg swelling, calf pain, chest pain, cough or any other symptoms at this time. trim master operator was used via [employer] system. Review of Systems Review of Systems: All systems reviewed & are unremarkable except as noted in HPI and below Exam Narrative: General: 45-year-old woman sitting up in bed. Appears comfortable. In no acute distress. Skin: No jaundice or cyanosis. Good skin turgor. Neck: Full range of motion. Supple. Respiratory: Lungs are clear to auscultation bilaterally. No wheezing, rales or rhonchi. No bony chest wall tenderness. Cardiovascular: The heart has a regular rate and rhythm without murmur. Lower extremities: No lower extremity edema. Distal pulses are easily palpated. No calf tenderness to palpation. Gastrointestinal: The abdomen is soft, nontender and nondistended with active bowel sounds. Psychiatric: Lucid and oriented. Memory intact. Neurologic: No focal deficits. Speech is clear. No facial drooping. Objective Data Vital Signs Vital Signs: Vital Signs - 24 hr 02/09/21 14:11 02/09/21 17:24 02/09/21 22:00 Temperature 96.8 F L 96.6 F L Pulse Rate 77 77 76 Respiratory Rate 16 21 H Blood Pressure 129/73 139/66 Pulse Oximetry 100 100 02/10/21 06:00 02/10/21 08:34 Temperature 97.9 F Pulse Rate 74 74 Respiratory Rate 21 H Blood Pressure 134/71 Pulse Oximetry 100 Intake/Output Intake/Output: Intake & Output 02/07/21 02/08/21 02/09/21 02/10/21 23:59 23:59 23:59 23:59 Intake Total 840 1280 590 Output Total 3000 500 Balance -2160 1280 90 Meds/Results Medications: Active Medications Generic Name Dose Route Start Last Admin Trade Name Freq PRN Reason Stop Dose Admin Acetaminophen 650 mg 02/09/21 17:29 02/09/21 18:13 Acetaminophen 325 Mg Tablet PO 650 mg Q6H PRN Administration Mild Pain (1-3) or Fever Amlodipine Besylate 10 mg 02/08/21 09:00 02/10/21 08:34 Amlodipine Besylate 5 Mg Tablet PO
--- NOTE | 2021-02-10 13:47 | PC.NURSE ---
Patient returned to room from dialysis via bed.
[2021-02-10 13:49] LABS: Glucose Point of Care 130 mg/dl (65-105)
[2021-02-10] MEDS: EPOETIN ALFA-EPBX 10,000 UNITS/ML VIAL 10000 UNITS SUB-Q (15:22)
[2021-02-10 17:18] LABS: Glucose Point of Care 145 mg/dl (65-105)
[2021-02-10 20:04] LABS: Glucose Point of Care 119 mg/dl (65-105)
[2021-02-10] MEDS: ATORVASTATIN 40 MG TABLET PO (20:50)
[2021-02-10 20:56] LABS: Glucose Point of Care 122 mg/dl (65-105)
[2021-02-10 23:53] LABS: Hepatitis B Core Ab Total Nonreactive (Nonreactive)
[2021-02-11 05:44] VITALS: BP 135/68; PULSE 80; RESP 16; TEMP 36.1; O2SAT 100
[2021-02-11] MEDS: LEVOTHYROXINE SODIUM 88 MCG TABLET PO (05:58)
[2021-02-11 07:26] LABS: Albumin Level 3.5 g/dL (3.5-5.1); Anion Gap 11 mmol/L (8-16); Blood Urea Nitrogen 28 mg/dL (7-17); Calcium 9.1 mg/dL (8.4-10.2); Carbon Dioxide 24 mmol/L (22-30); Chloride 96 mmol/L (98-107); Estimated CRCL calculation 12 ml/min; Estimated Glomerular Filt Rate 12; Glucose 98 mg/dL (65-110); Phosphorus 3.7 mg/dL (2.5-4.5); Potassium 3.7 mmol/L (3.4-5.0); Sodium 131 mmol/L (137-145)
[2021-02-11 08:00] LABS: Glucose Point of Care 107 mg/dl (65-105)
[2021-02-11] MEDS: prednisoLONE ACETATE 1% OPHTH 5 ML 1 DROP RIGHT EYE (08:27)
[2021-02-11] MEDS: ATROPINE SULFATE 1% OPHTH SOLN 5 ML BOTTLE 1 DROP RIGHT EYE (08:27)
[2021-02-11] MEDS: TIMOLOL MALEATE 0.5% OP SOLN 5 ML BOTTLE 1 DROP RIGHT EYE (08:27)
[2021-02-11] MEDS: BRIMONIDINE TARTRATE 0.2% OP SOLN 5 ML BTL 1 DROP RIGHT EYE (08:27)
[2021-02-11] MEDS: ENOXAPARIN 30 MG/0.3 ML SYRINGE SUB-Q (08:27)
[2021-02-11 08:28] VITALS: PULSE 80
[2021-02-11] MEDS: FUROSEMIDE 40 MG TABLET PO (08:28)
[2021-02-11] MEDS: LORATADINE 10 MG TABLET PO (08:28)
[2021-02-11] MEDS: CHOLECALCIFEROL 400 UNITS TABLET (VIT D) PO (08:28)
[2021-02-11] MEDS: carvediloL 12.5 MG TABLET PO ×2 (08:28→17:12)
[2021-02-11] MEDS: amLODIPine BESYLATE 5 MG TABLET 10 MG PO (08:28)
[2021-02-11] MEDS: FERROUS SULFATE 324 MG TABLET PO (08:28)
[2021-02-11] MEDS: ASPIRIN 81 MG ENTERIC TABLET PO (08:28)
[2021-02-11] MEDS: INSULIN ASPART (*BKC) 100 UNITS/ML SUB-Q ×3 (08:30→17:12)
[2021-02-11 09:06] LABS: Glucose Point of Care 92 mg/dl (65-105)
[2021-02-11 11:41] LABS: Glucose Point of Care 158 mg/dl (65-105)
--- NOTE | 2021-02-11 13:57 | PM.IMPN ---
Progress Note: A&P Assessment and Plan (1) End-stage renal disease (ESRD): Code(s): N18.6 - End stage renal disease Status: Acute Assessment and Plan: patient dialyzes 3 times a week, recently moved to the area. Last Dialysis was Friday at [facility], she received dialysis 02/08/21. Dr. Martínez evaluated the patient and working on getting her an outpatient dialysis chair. Hepatitis B Core Surface Antibody Showed nonreactive. We are waiting for dialysis to give us a chair time and location. Hopefully we get this information tomorrow. Continued monitoring. (2) Hyperkalemia: Code(s): E87.5 - Hyperkalemia Status: Acute Assessment and Plan: Improved after dialysis. She did receive Kayexalate the emergency room on arrival. (3) Hypertension: Code(s): I10 - Essential (primary) hypertension Status: Acute Assessment and Plan: Blood pressure this morning was normal 131/66. Stable. Continue home meds (4) Diabetes mellitus: Code(s): E11.9 - Type 2 diabetes mellitus without complications Status: Inactive Assessment and Plan: patient is on glipizide glipizide has been held due to patient's end-stage renal disease will do insulin sliding scale as needed. glucose check a.c. HS. Hypoglycemic protocol in place. (5) Arteriovenous fistula for hemodialysis in place, primary: Code(s): Z99.2 - Dependence on renal dialysis Status: Inactive Assessment and Plan: continue to monitor immature Time Spent With Patient Time with patient: 25 - 35 minutes Subjective Date/time seen: 02/11/21 13:57 Interval history: Date of service 02/11/2021: The patient reports feeling well today without any issues at this time. Excited she may get to go home tomorrow. Denies any SOB, fevers, chills, nausea, vomiting, abdominal pain, leg swelling, calf pain, chest pain, cough or any other symptoms at this time. court interpreter was used via [employer] system. Review of Systems Review of Systems: All systems reviewed & are unremarkable except as noted in HPI and below Exam Narrative: General: 45-year-old woman sitting up in bed. Appears comfortable. In no acute distress. Skin: No jaundice or cyanosis. Good skin turgor. Neck: Full range of motion. Supple. Respiratory: Lungs are clear to auscultation bilaterally. No wheezing, rales or rhonchi. No bony chest wall tenderness. Cardiovascular: The heart has a regular rate and rhythm without murmur. Lower extremities: No lower extremity edema. Distal pulses are easily palpated. No calf tenderness to palpation. Gastrointestinal: The abdomen is soft, nontender and nondistended with active bowel sounds. Psychiatric: Lucid and oriented. Memory intact. Neurologic: No focal deficits. Speech is clear. No facial drooping. Objective Data Vital Signs Vital Signs: Vital Signs - 24 hr 02/10/21 14:00 02/10/21 17:14 02/10/21 20:00 Temperature 98.3 F 96.8 F L Pulse Rate 83 83 78 Respiratory Rate 20 16 Blood Pressure 121/65 140/75 Pulse Oximetry 100 100 02/11/21 05:44 02/11/21 08:28 Temperature 97.0 F L Pulse Rate 80 80 Respiratory Rate 16 Blood Pressure 135/68 Pulse Oximetry 100 Intake/Output Intake/Output: Intake & Output 02/08/21 02/09/21 02/10/21 02/11/21 23:59 23:59 23:59 23:59 Intake Total 840 1280 1420 780 Output Total 3000 3350 400 Balance -2160 1280 -1930 380 Meds/Results Medications: Active Medications Generic Name Dose Route Start Last Admin Trade Name Freq PRN Reason Stop Dose Admin Acetaminophen 650 mg 02/09/21 17:29 02/09/21 18:13 Acetaminophen 325 Mg Tablet PO 650 mg Q6H PRN Administration Mild Pain (1-3)
[2021-02-11 14:00] VITALS: BP 131/66; PULSE 74; RESP 16; TEMP 37.1; O2SAT 100
--- NOTE | 2021-02-11 14:01 | PM.PNNEP ---
Progress Note: A&P Assessment and Plan (1) End-stage renal disease (ESRD): Code(s): N18.6 - End stage renal disease Status: Acute Assessment and Plan: the patient has end-stage renal disease. She has a fistula and a catheter. It does not look like the fistula is mature for use right now. Dialysis due tomorrow (2) Hypertension: Code(s): I10 - Essential (primary) hypertension Status: Acute Assessment and Plan: Blood pressure is under good control now (3) Hyperkalemia: Code(s): E87.5 - Hyperkalemia Status: Acute Assessment and Plan: The patient's potassium is Better. (4) Erythropoietin deficiency anemia: Code(s): D63.1 - Anemia in chronic kidney disease Status: Acute Assessment and Plan: Hemoglobin is low. Getting Epogen. (5) Metabolic acidosis: Code(s): E87.2 - Acidosis Status: Acute Assessment and Plan: resolved Subjective Date/time seen: 02/11/21 14:01 Interval history: Clarissa is feeling okay. No shortness of breath or chest pain. Due for dialysis tomorrow I used the iPad rubber cutter and shape carver Exam Narrative: WDWN in NAD skin no rash head ncat lungs clear to ausc cor reg no rub o gallop abd BS+ nontender and soft ext no edema. Objective Data Vital Signs Vital Signs: Vital Signs - 24 hr 02/10/21 17:14 02/10/21 20:00 02/11/21 05:44 Temperature 36.0 C L 36.1 C L Pulse Rate 83 78 80 Respiratory Rate 16 16 Blood Pressure 140/75 135/68 Pulse Oximetry 100 100 02/11/21 08:28 Temperature Pulse Rate 80 Respiratory Rate Blood Pressure Pulse Oximetry Intake/Output Intake/Output: Intake & Output 02/08/21 02/09/21 02/10/21 02/11/21 23:59 23:59 23:59 23:59 Intake Total 840 1280 1420 780 Output Total 3000 3350 400 Balance -2160 1280 -1930 380 Meds/Results Medications: Active Medications Generic Name Dose Route Start Last Admin Trade Name Freq PRN Reason Stop Dose Admin Acetaminophen 650 mg 02/09/21 17:29 02/09/21 18:13 Acetaminophen 325 Mg Tablet PO 650 mg Q6H PRN Administration Mild Pain (1-3) or Fever Amlodipine Besylate 10 mg 02/08/21 09:00 02/11/21 08:28 Amlodipine Besylate 5 Mg Tablet PO 03/10/21 09:01 10 mg DAILY AMY Administration Aspirin 81 mg 02/08/21 09:00 02/11/21 08:28 Aspirin 81 Mg Enteric Tablet PO 81 mg QAM AMY Administration Atorvastatin Calcium 40 mg 02/08/21 21:00 02/10/21 20:50 Atorvastatin 40 Mg Tablet PO 40 mg HS [facility] Administration Atropine Sulfate 1 drop 02/08/21 09:00 02/11/21 08:27 Atropine Sulfate 1% Ophth Soln 5 Ml Bottle RIGHT EYE 03/10/21 09:01 1 drop DAILY AMY Administration Brimonidine Tartrate 1 drop 02/08/21 09:00 02/11/21 08:27 Brimonidine Tartrate 0.2% Op Soln 5 Ml Btl RIGHT EYE 03/10/21 09:01 1 drop DAILY AMY Administration Carvedilol 12.5 mg 02/08/21 17:00 02/11/21 08:28 Carvedilol 12.5 Mg Tablet PO 12.5 mg BID [facility] Administration Enoxaparin Sodium 30 mg 02/09/21 12:05 02/11/21 08:27 Enoxaparin 30 Mg/0.3 Ml Syringe SUB-Q 30 mg DAILY [facility] Administration Epoetin Luis Fernando-epbx 10,000 units 02/10/21 10:00 02/10/21 13:49 Epoetin Luis Fernando-Epbx 10,000 Units/Ml Vial IV PUSH Not Given [facility] Ferrous Sulfate 324 mg 02/08/21 08:00 02/11/21 08:28 Ferrous Sulfate 324 Mg Tablet PO 324 mg DAILY@0800 [facility] Administration Furosemide 40 mg 02/08/21 09:00 02/11/21 08:28 Furosemide 40 Mg Tablet PO 40 mg DAILY [facility] Administration Insulin Aspart 2 units 02/08/21 08:00 02/11/21 11:54 Insulin Aspart (*Bkc) 100 Units/Ml 0.05 units/kg (2 units) 2 units SUB-Q Administration TIDWM [facility] Levothyroxine Sodium 88 mcg 02/08/21 06:30 02/11/21 05:58 Levothyroxine Sodium 88 Mcg Tablet PO 88 mcg DAILY@0630 [facility] Administration Loratadine 10 mg 02/08/21 09:00 02/11/21 08:28 Loratadine 10 Mg Tablet PO 10 mg QAM
[2021-02-11 16:52] LABS: Glucose Point of Care 157 mg/dl (65-105)
[2021-02-11 17:04] LABS: Iron 50 ug/dL (37-170)
[2021-02-11 17:12] VITALS: PULSE 74
[2021-02-11 17:27] LABS: Percent Iron Saturation 27 % (20-50)
[2021-02-11] MEDS: ATORVASTATIN 40 MG TABLET PO (20:15)
[2021-02-11 20:39] VITALS: BP 147/74; PULSE 88; RESP 16; TEMP 35.8; O2SAT 100
[2021-02-11 20:56] LABS: Glucose Point of Care 108 mg/dl (65-105)
[2021-02-12] VITALS (19 sets, daily range): BP systolic 117–148; BP diastolic 63–82; PULSE 72–82; RESP 16–17; TEMP 36–37; O2SAT 100
[2021-02-12] MEDS: LEVOTHYROXINE SODIUM 88 MCG TABLET PO (05:46)
[2021-02-12 07:09] LABS: Albumin Level 3.6 g/dL (3.5-5.1); Anion Gap 14 mmol/L (8-16); Blood Urea Nitrogen 45 mg/dL (7-17); Calcium 9.1 mg/dL (8.4-10.2); Carbon Dioxide 20 mmol/L (22-30); Chloride 99 mmol/L (98-107); Estimated CRCL calculation 10 ml/min; Estimated Glomerular Filt Rate 9; Glucose 89 mg/dL (65-110); Phosphorus 4.6 mg/dL (2.5-4.5); Potassium 3.8 mmol/L (3.4-5.0); Sodium 133 mmol/L (137-145)
[2021-02-12] MEDS: INSULIN ASPART (*BKC) 100 UNITS/ML SUB-Q ×2 (09:37→17:12)
[2021-02-12] MEDS: ATROPINE SULFATE 1% OPHTH SOLN 5 ML BOTTLE 1 DROP RIGHT EYE (09:39)
[2021-02-12] MEDS: carvediloL 12.5 MG TABLET PO ×2 (09:39→17:12)
[2021-02-12] MEDS: TIMOLOL MALEATE 0.5% OP SOLN 5 ML BOTTLE 1 DROP RIGHT EYE (09:39)
[2021-02-12] MEDS: prednisoLONE ACETATE 1% OPHTH 5 ML 1 DROP RIGHT EYE (09:39)
[2021-02-12] MEDS: BRIMONIDINE TARTRATE 0.2% OP SOLN 5 ML BTL 1 DROP RIGHT EYE (09:39)
[2021-02-12] MEDS: FUROSEMIDE 40 MG TABLET PO (09:40)
[2021-02-12] MEDS: ENOXAPARIN 30 MG/0.3 ML SYRINGE SUB-Q (09:40)
[2021-02-12] MEDS: CHOLECALCIFEROL 400 UNITS TABLET (VIT D) PO (09:40)
[2021-02-12] MEDS: LORATADINE 10 MG TABLET PO (09:40)
[2021-02-12] MEDS: ASPIRIN 81 MG ENTERIC TABLET PO (09:40)
[2021-02-12] MEDS: FERROUS SULFATE 324 MG TABLET PO (09:40)
[2021-02-12] MEDS: amLODIPine BESYLATE 5 MG TABLET 10 MG PO (09:40)
[2021-02-12 10:38] LABS: Glucose Point of Care 212 mg/dl (65-105)
--- NOTE | 2021-02-12 12:27 | PC.NURSE ---
pt to dialysis via bed
[2021-02-12 12:33] LABS: Glucose Point of Care 165 mg/dl (65-105)
--- NOTE | 2021-02-12 15:53 | PM.PNNEP ---
Progress Note: A&P Assessment and Plan (1) End-stage renal disease (ESRD): Code(s): N18.6 - End stage renal disease Status: Chronic Assessment and Plan: HD today and continue M/W/ schedule for no she has a fistula and a HD catheter at this time -- the fistula is not mature for use right now follow electrolytes, volume status, and clearance awaiting for outpatient dialysis arrangements (2) Hypertension: Code(s): I10 - Essential (primary) hypertension Status: Chronic Assessment and Plan: reasonable control at this time follow trend of hemodynamics (3) Hyperkalemia: Code(s): E87.5 - Hyperkalemia Status: Acute Assessment and Plan: better control since admission/dialysis intervention follow repeat levels (4) Erythropoietin deficiency anemia: Code(s): D63.1 - Anemia in chronic kidney disease Status: Chronic Assessment and Plan: due to ESRD Epogen with HD follow trend of H/H (5) Metabolic acidosis: Code(s): E87.2 - Acidosis Status: Resolved Assessment and Plan: due to ESRD and lack of dialysis corrected with dialytic intervention Will continue to follow. Subjective Date/time seen: 02/12/21 15:53 Chart reviewed - assuming care from Dr. Martínez; tolerating dialysis at the time of my visit (seen on HD at 3:30PM); no apparent distress noted; no events/issues overnight or earlier this AM. Exam Narrative: General: WD/WN female in NAD Heart: normal S1 and S2; no rub Lungs: clear to auscultation Abdomen: soft, nontender, nondistended, positive bowel sounds Extremities: no cyanosis or clubbing; no edema Skin: warm and dry Objective Data Vital Signs Vital Signs: Vital Signs Temp Pulse Resp BP Pulse Ox 02/12/21 15:30 78 137/76 02/12/21 15:15 75 129/74 02/12/21 15:00 75 132/70 02/12/21 14:45 74 128/79 02/12/21 14:30 74 131/75 02/12/21 14:15 75 127/69 02/12/21 14:00 72 136/76 02/12/21 13:45 73 140/77 02/12/21 13:30 72 142/77 H 02/12/21 13:15 73 148/81 H 02/12/21 13:00 73 146/82 H 02/12/21 12:49 76 145/81 H 02/12/21 12:35 36.9 C 72 16 147/79 H 02/12/21 09:39 80 02/12/21 06:00 36.3 C L 81 16 128/67 100 02/11/21 20:39 35.8 C L 88 16 147/74 H 100 02/11/21 17:12 74 Intake/Output Intake/Output: Intake & Output 02/09/21 02/10/21 02/11/21 02/12/21 23:59 23:59 23:59 23:59 Intake Total 1280 1420 1570 830 Output Total 3350 600 800 Balance 1280 -1930 970 30 Meds/Results Medications: Active Medications Generic Name Dose Route Start Last Admin Trade Name Freq PRN Reason Stop Dose Admin Acetaminophen 650 mg 02/09/21 17:29 02/09/21 18:13 Acetaminophen 325 Mg Tablet PO 650 mg Q6H PRN Administration Mild Pain (1-3) or Fever Amlodipine Besylate 10 mg 02/08/21 09:00 02/12/21 09:40 Amlodipine Besylate 5 Mg Tablet PO 03/10/21 09:01 10 mg DAILY AMY Administration Aspirin 81 mg 02/08/21 09:00 02/12/21 09:40 Aspirin 81 Mg Enteric Tablet PO 81 mg QAM AMY Administration Atorvastatin Calcium 40 mg 02/08/21 21:00 02/11/21 20:15 Atorvastatin 40 Mg Tablet PO 40 mg HS AMY Administration Atropine Sulfate 1 drop 02/08/21 09:00 02/12/21 09:39 Atropine Sulfate 1% Ophth Soln 5 Ml Bottle RIGHT EYE 03/10/21 09:01 1 drop DAILY AMY Administration Brimonidine Tartrate 1 drop 02/08/21 09:00 02/12/21 09:39 Brimonidine Tartrate 0.2% Op Soln 5 Ml Btl RIGHT EYE 03/10/21 09:01 1 drop DAILY AMY Administration Carvedilol 12.5 mg 02/08/21 17:00 02/12/21 09:39 Carvedilol 12.5 Mg Tablet PO 12.5 mg BID AMY Administration Enoxaparin Sodium 30 mg 02/09/21 12:05 02/12/21 09:40 Enoxaparin 30 Mg/0.3 Ml Syringe SUB-Q 30 mg DAILY AMY Administration Epoetin Luis Fernando-epbx 10,000 units 02/12/21 14:06 Epoetin Luis Fernando-Epbx 10,000 Units/Ml Vi
--- NOTE | 2021-02-12 16:33 | PM.IMPN ---
Progress Note: A&P Assessment and Plan (1) Discharge planning issues: Code(s): Z02.9 - Encounter for administrative examinations, unspecified Status: Acute Assessment and Plan: we were not able to get the patient's dialysis chair information today so she will have to stay overnight, pending information from [facility] and hoping she can end up going home tomorrow. (2) End-stage renal disease (ESRD): Code(s): N18.6 - End stage renal disease Status: Acute Assessment and Plan: patient dialyzes 3 times a week, recently moved to the area. Last Dialysis was Friday at [facility], she received dialysis 02/08/21. Dr. Martínez evaluated the patient and working on getting her an outpatient dialysis chair. Hepatitis B Core Surface Antibody Showed nonreactive. We are waiting for dialysis to give us a chair time and location. Hopefully we get this information tomorrow. Continued monitoring. (3) Hyperkalemia: Code(s): E87.5 - Hyperkalemia Status: Acute Assessment and Plan: Improved after dialysis. She did receive Kayexalate the emergency room on arrival. K is otherwise been stable during hospitalization (4) Hypertension: Code(s): I10 - Essential (primary) hypertension Status: Acute Assessment and Plan: Blood pressure this morning was normal 136/72 Stable. Continue home meds (5) Diabetes mellitus: Code(s): E11.9 - Type 2 diabetes mellitus without complications Status: Inactive Assessment and Plan: patient is on glipizide glipizide has been held due to patient's end-stage renal disease will do insulin sliding scale as needed. glucose check a.c. HS. Hypoglycemic protocol in place. (6) Arteriovenous fistula for hemodialysis in place, primary: Code(s): Z99.2 - Dependence on renal dialysis Status: Inactive Assessment and Plan: continue to monitor immature Time Spent With Patient Time with patient: 25 - 35 minutes Subjective Date/time seen: 02/12/21 16:33 Interval history: Date of service 02/12/2021: The patient reports feeling well today without any issues at this time. Denies any SOB, fevers, chills, nausea, vomiting, abdominal pain, leg swelling, calf pain, chest pain, cough or any other symptoms at this time. translator and interpreter was used via [employer] system. Review of Systems Review of Systems: All systems reviewed & are unremarkable except as noted in HPI and below Exam Narrative: General: 45-year-old woman resting in bed. Appears comfortable. In no acute distress. Skin: No jaundice or cyanosis. Good skin turgor. Neck: Full range of motion. Supple. Respiratory: Lungs are clear to auscultation bilaterally. No wheezing, rales or rhonchi. No bony chest wall tenderness. Cardiovascular: The heart has a regular rate and rhythm without murmur. Lower extremities: No lower extremity edema. Distal pulses are easily palpated. No calf tenderness to palpation. Gastrointestinal: The abdomen is soft, nontender and nondistended with active bowel sounds. Psychiatric: Lucid and oriented. Memory intact. Neurologic: No focal deficits. Speech is clear. No facial drooping. Objective Data Vital Signs Vital Signs: Vital Signs - 24 hr 02/11/21 17:12 02/11/21 20:39 02/12/21 06:00 Temperature 96.5 F L 97.4 F L Pulse Rate 74 88 81 Respiratory Rate 16 16 Blood Pressure 147/74 H 128/67 Pulse Oximetry 100 100 02/12/21 09:39 02/12/21 12:35 02/12/21 12:49 Temperature 98.4 F Pulse Rate 80 72 76 Respiratory Rate 16 Blood Pressure 147/79 H 145/81 H Pulse Oximetry 02/12/21 13:00 02/12/21 13:15 02/12/21 13
[2021-02-12 16:48] LABS: Glucose Point of Care 154 mg/dl (65-105)
[2021-02-12] MEDS: ATORVASTATIN 40 MG TABLET PO (20:15)
[2021-02-12 20:20] LABS: Glucose Point of Care 153 mg/dl (65-105)
[2021-02-13] MEDS: LEVOTHYROXINE SODIUM 88 MCG TABLET PO (05:33)
[2021-02-13 05:55] VITALS: BP 125/64; PULSE 79; RESP 17; TEMP 36.1; O2SAT 100
[2021-02-13 08:07] LABS: Glucose Point of Care 124 mg/dl (65-105)
[2021-02-13] MEDS: ASPIRIN 81 MG ENTERIC TABLET PO (09:15)
[2021-02-13 09:16] VITALS: PULSE 79
[2021-02-13] MEDS: amLODIPine BESYLATE 5 MG TABLET 10 MG PO (09:16)
[2021-02-13] MEDS: carvediloL 12.5 MG TABLET PO (09:16)
[2021-02-13] MEDS: CHOLECALCIFEROL 400 UNITS TABLET (VIT D) PO (09:16)
[2021-02-13] MEDS: FERROUS SULFATE 324 MG TABLET PO (09:16)
[2021-02-13] MEDS: FUROSEMIDE 40 MG TABLET PO (09:16)
[2021-02-13] MEDS: prednisoLONE ACETATE 1% OPHTH 5 ML 1 DROP RIGHT EYE (09:17)
[2021-02-13] MEDS: TIMOLOL MALEATE 0.5% OP SOLN 5 ML BOTTLE 1 DROP RIGHT EYE (09:17)
[2021-02-13] MEDS: BRIMONIDINE TARTRATE 0.2% OP SOLN 5 ML BTL 1 DROP RIGHT EYE (09:17)
[2021-02-13] MEDS: LORATADINE 10 MG TABLET PO (09:17)
[2021-02-13] MEDS: INSULIN ASPART (*BKC) 100 UNITS/ML SUB-Q ×2 (09:17→12:56)
[2021-02-13] MEDS: ENOXAPARIN 30 MG/0.3 ML SYRINGE SUB-Q (09:17)
[2021-02-13] MEDS: ATROPINE SULFATE 1% OPHTH SOLN 5 ML BOTTLE 1 DROP RIGHT EYE (09:17)
--- NOTE | 2021-02-13 11:05 | PM.PNNEP ---
Progress Note: A&P Assessment and Plan (1) End-stage renal disease (ESRD): Code(s): N18.6 - End stage renal disease Status: Chronic Assessment and Plan: HD tomorrow and continue M/W/ schedule for now she has a fistula and a HD catheter at this time -- the fistula is not mature for use right now follow electrolytes, volume status, and clearance awaiting for outpatient dialysis arrangements (2) Hypertension: Code(s): I10 - Essential (primary) hypertension Status: Chronic Assessment and Plan: reasonable control at this time follow trend of hemodynamics (3) Hyperkalemia: Code(s): E87.5 - Hyperkalemia Status: Acute Assessment and Plan: better control since admission/dialysis intervention follow repeat levels (4) Erythropoietin deficiency anemia: Code(s): D63.1 - Anemia in chronic kidney disease Status: Chronic Assessment and Plan: due to ESRD Epogen with HD follow trend of H/H (5) Metabolic acidosis: Code(s): E87.2 - Acidosis Status: Resolved Assessment and Plan: due to ESRD and lack of dialysis corrected with dialytic intervention Will continue to follow. Subjective Date/time seen: 02/13/21 11:05 Tolerated dialysis yesterday without any issues or problems; otherwise, appears in no acute distress; no issues/events overnight or earlier this AM per nursing staff; no apparent complaints at this time. Exam Narrative: General: WD/WN female in NAD Heart: normal S1 and S2; no rub Lungs: clear to auscultation Abdomen: soft, nontender, nondistended, positive bowel sounds Extremities: no cyanosis or clubbing; no edema Skin: warm and dry Objective Data Vital Signs Vital Signs: Vital Signs Temp Pulse Resp BP Pulse Ox 02/13/21 09:16 79 02/13/21 05:55 36.1 C L 79 17 125/64 100 02/12/21 20:25 36.6 C 76 17 134/63 100 02/12/21 17:12 82 02/12/21 15:55 36.7 C 82 16 136/72 02/12/21 15:49 81 117/79 02/12/21 15:30 78 137/76 02/12/21 15:15 75 129/74 02/12/21 15:00 75 132/70 02/12/21 14:45 74 128/79 02/12/21 14:30 74 131/75 02/12/21 14:15 75 127/69 02/12/21 14:00 72 136/76 02/12/21 13:45 73 140/77 02/12/21 13:30 72 142/77 H 02/12/21 13:15 73 148/81 H 02/12/21 13:00 73 146/82 H 02/12/21 12:49 76 145/81 H 02/12/21 12:35 36.9 C 72 16 147/79 H Intake/Output Intake/Output: Intake & Output 02/10/21 02/11/21 02/12/21 02/13/21 23:59 23:59 23:59 23:59 Intake Total 1420 1570 1660 490 Output Total 3350 600 3400 675 Balance -1930 970 -1740 -185 Meds/Results Medications: Active Medications Generic Name Dose Route Start Last Admin Trade Name Freq PRN Reason Stop Dose Admin Acetaminophen 650 mg 02/09/21 17:29 02/09/21 18:13 Acetaminophen 325 Mg Tablet PO 650 mg Q6H PRN Administration Mild Pain (1-3) or Fever Amlodipine Besylate 10 mg 02/08/21 09:00 02/13/21 09:16 Amlodipine Besylate 5 Mg Tablet PO 03/10/21 09:01 10 mg DAILY AMY Administration Aspirin 81 mg 02/08/21 09:00 02/13/21 09:15 Aspirin 81 Mg Enteric Tablet PO 81 mg QAM AMY Administration Atorvastatin Calcium 40 mg 02/08/21 21:00 02/12/21 20:15 Atorvastatin 40 Mg Tablet PO 40 mg HS AMY Administration Atropine Sulfate 1 drop 02/08/21 09:00 02/13/21 09:17 Atropine Sulfate 1% Ophth Soln 5 Ml Bottle RIGHT EYE 03/10/21 09:01 1 drop DAILY AMY Administration Brimonidine Tartrate 1 drop 02/08/21 09:00 02/13/21 09:17 Brimonidine Tartrate 0.2% Op Soln 5 Ml Btl RIGHT EYE 03/10/21 09:01 1 drop DAILY AMY Administration Carvedilol 12.5 mg 02/08/21 17:00 02/13/21 09:16 Carvedilol 12.5 Mg Tablet PO 12.5 mg BID AMY Administration Enoxaparin Sodium 30 mg 02/09/21 12:05 02/13/21 09:17 Enoxaparin 30 Mg/0.3 Ml Syringe SUB-Q 30 mg DAILY AMY Administrat
[2021-02-13 12:05] LABS: Glucose Point of Care 102 mg/dl (65-105)
[2021-02-13 14:00] VITALS: BP 89/62; PULSE 78; RESP 16; TEMP 37.2; O2SAT 100
[2021-02-13 14:28] VITALS: BP 124/62
--- NOTE | 2021-02-13 15:38 | PM.DS ---
DS: Admitting Diagnosis Admitting Diagnosis Fluid overload DS: Discharge Diagnosis Discharge Diagnosis (1) Discharge planning issues: Code(s): Z02.9 - Encounter for administrative examinations, unspecified Status: Acute Assessment and Plan: we were not able to get the patient's dialysis chair information today so she will have to stay overnight, pending information from [facility] and hoping she can end up going home tomorrow. (2) End-stage renal disease (ESRD): Code(s): N18.6 - End stage renal disease Status: Acute Assessment and Plan: patient dialyzes 3 times a week, recently moved to the area. Last Dialysis was Friday at [facility] [place], she received dialysis 02/08/21. Dr. Martínez evaluated the patient and working on getting her an outpatient dialysis chair. Hepatitis B Core Surface Antibody Showed nonreactive. We are waiting for dialysis to give us a chair time and location. Hopefully we get this information tomorrow. Continued monitoring. (3) Hyperkalemia: Code(s): E87.5 - Hyperkalemia Status: Acute Assessment and Plan: Improved after dialysis. She did receive Kayexalate the emergency room on arrival. K is otherwise been stable during hospitalization (4) Hypertension: Code(s): I10 - Essential (primary) hypertension Status: Acute Assessment and Plan: Blood pressure this morning was normal 136/72 Stable. Continue home meds (5) Diabetes mellitus: Code(s): E11.9 - Type 2 diabetes mellitus without complications Status: Inactive Assessment and Plan: patient is on glipizide glipizide has been held due to patient's end-stage renal disease will do insulin sliding scale as needed. glucose check a.c. HS. Hypoglycemic protocol in place. (6) Arteriovenous fistula for hemodialysis in place, primary: Code(s): Z99.2 - Dependence on renal dialysis Status: Inactive Assessment and Plan: continue to monitor immature DS: Summary Hospital Course Hospital Course: Date of service 02/13/2021 at 1645 Patient is a 45-year-old female with history of hypertension, diabetes, end-stage renal disease on dialysis who presented to the ED for evaluation of fluid overload and urgent dialysis. Since admission patient has been getting dialysis and labs have returned back to baseline. Blood pressure has been controlled with the most current being 124/62. BUN and creatinine are 45/5.10. Diabetes is also under control with the last blood sugar being 102. Patient reports to feeling well today and is ready to go dialysis has been set up for her with her 1st appointment being at noon. Patient denies chest pain, shortness of breath, nausea, vomiting, sweats, fevers, chills. Status at Discharge Functional status at discharge: independent ambulation Overall status at discharge: patient is progressing back to baseline Time Spent with Patient Time attestation: Total time spent providing and/or coordinating discharge services: Time spent: Greater than 30 minutes Specific discharge activities: Chart review, lab review, diagnostic testing, ordering, care coordination, education, documentation, physical exam Exam Const: General: cooperative, comfortable, no acute distress, well developed, alert and awake Nutritional Appearance: thin Orientation/consciousness: patient oriented x3 HENMT: Head: normal to inspection, normocephalic and atraumatic Ears: hearing grossly normal bilaterally General nose exam: Normal external nose present Face and sinus: normal facial exam Eyes: General: appearance normal, both eyes and all related structures Alignm
== END 2021-02-13 16:31 | disposition home or self-care (01) | DRG 468 ==
LOC: ANHED 16:48 → ANH3MED 17:16
PROVIDERS: Internal Medicine Nephrology; Physician Assistant; Admitting Provider Internal Medicine; Emergency Provider General Practice; Visit Provider Family Medicine
DX: E11.22 Type 2 diabetes mellitus with diabetic chronic kidney disease (principal); I12.0 Hypertensive chronic kidney disease with stage 5 chronic kidney disease or end stage renal disease; N18.6 End stage renal disease; Z99.2 Dependence on renal dialysis; D63.1 Anemia in chronic kidney disease; E03.9 Hypothyroidism, unspecified; E11.319 Type 2 diabetes mellitus with unspecified diabetic retinopathy without macular edema; E87.5 Hyperkalemia; E87.2 Acidosis; Z79.899 Other long term (current) drug therapy
CPT/HCPCS: 36415; 71046; 80053; 80069; 82728; 82948; 83540; 83550; 83735; 84100; 85025; 85055; 85610; 85730; 86704; 86705; 86706; 86803; 87340; 93005; 99285; A9270; G0257; G0378; G0379; J1644; J1650; J1815; J7030; Q5106